=== PATIENT | male | born 1980 | race Caucasian/White ===

== ENCOUNTER 2017-06-27 19:25 | Emergency (ER) | payer OTHER ==
[~2017-06-27] VITALS: Ht 177.8 cm; Wt 82.2 kg
[~2017-06-27 19:25] MED LIST: CLC150 PO; SULF800T23 PO
[2017-06-27 20:01] VITALS: TEMP 36.8; Ht 177.8 cm; Wt 82.2 kg
--- NOTE | 2017-06-27 20:39 | EMERGENCY ROOM VISIT NOTE ---
ED Visit Note First contact with patient: 20:08 CHIEF COMPLAINT: Flulike symptoms 3 days HISTORY OF PRESENT ILLNESS: Patient is an otherwise healthy 36-year-old white male who presents to the emergency department for evaluation of an influenza- like illness that started 3 days ago. He reports a nasal congestion, sore throat, sweats and chills, nonproductive cough, and body aches. He has not recorded his temperature with a thermometer, just notes feeling hot and chilled. He initially had a cough that was productive of clear phlegm, now has resolved. He denies any nausea vomiting chest pain or shortness of breath. He is not aware of any sick contacts. He has taken NyQuil and ibuprofen for his symptoms. REVIEW OF SYSTEMS: Review of systems as per HPI. All other systems reviewed were negative. 10 systems reviewed. PMH: Electronic medical records are reviewed and summarized as above/below. See Problem List. SOCIAL HISTORY: Patient lives at home. Former smoker. Unemployed. PHYSICAL EXAM: Vital Signs: Reviewed Nurse's notes. MENTAL STATUS: Patient is a well-appearing, nontoxic 36-year-old white male who is awake and alert and in no acute distress. Vital signs are stable. HEAD: Atraumatic, without temporal or scalp tenderness. EYES: PERRL, EOMI, no discharge or injection. EARS: Tympanic membranes intact, not inflamed, have normal contour. External canals clear. NOSE: Nares patent, turbinates moist without rhinorrhea. MOUTH: Mucous membranes moist, no lesions, tongue and gums appear normal. THROAT: No pharyngeal injection, exudates, or tonsillar hypertrophy. Airway is patent. NECK: Supple, nontender, no lymphadenopathy. HEART: Regular rate and rhythm without murmurs, ectopy, gallops, or rubs. LUNGS: Clear to auscultation and breath sounds equal, no wheezes, rales, or rhonchi. SKIN: Normal. NEUROLOGICAL: Sensory and motor functions grossly intact. Normal gait. EMERGENCY DEPARTMENT COURSE: The patient was seen and evaluated as above. Old records were reviewed. He has been sick with some minor upper respiratory symptoms for the last 2-3 days. He is afebrile and nontoxic on exam. Affect is illness is viral in nature. Possibility of influenza was also entertained. Patient was encouraged to continue conservative care. Use [id number] medications and treat himself symptomatically. It was not felt that any antibiotics were indicated at this time and this was discussed with the patient and he expressed understanding. Certainly if his symptoms worsen he can return to the emergency department at which point we would be happy to reevaluate him. Differential diagnoses include strep versus viral pharyngitis, otitis media, URI including influenza, mononucleosis, among others. Medication reconciliation: I attest that I have personally reviewed the patient' s current medication list. Blood pressure screening : Patient was found to have normal blood pressure on screening and does not require follow-up. Current/Historical Medications Scheduled Quetiapine Fumarate (Seroquel), 25 MG PO DAILY Allergies Coded Allergies: Penicillins (Unverified Allergy, Mild, 07/09/09) Vital Signs Date Time Temp Pulse Resp B/P (MAP) Pulse Ox O2 Delivery O2 Flow Rate FiO2 06/27/17 21:05 76 22 131/79 96 06/27/17 20:01 36.8 80 20 134/83 98 Room Air Departure Information Impression Primary Impression: Upper respiratory infection Referrals Gerri Durand C.R.NJavierPJavier (PCP) Patient Instructions My [facility] Additional Instructions Acetaminophen(Tylenol) may be used for fever or pain. Use 1000mg every six hours as needed. Avoid using more than 3000mg in a 24 hour period. (AND/OR) Ibuprofen(Motrin, Advil) may be used for fever or pain. Use 600mg every six hours as needed. Take with food. Avoid using more than 2400mg in a 24 hour period. Do not use 2400mg per day for more than three consecutive days without physician direction. Prolonged inappropriate use can lead to stomach upset or ulcers. Pseudoephedrine(Sudaphed): 30-60mg every 6 hours as needed for nasal congestion. Do not take this with other stimulant products or supplements. Robitussin or Delsym if needed for cough. Guaifenesin (Mucinex) : Take 1200 mg every 12 hours as needed for nasal/chest congestion, to help thin secretions. Rest and drink plenty of fluids. Controlling your fever with Tylenol and Ibuprofen as above will make you feel better. Wash your hands after nose blowing, sneezing, or coughing. Most germs are spread through contact, therefore improper hygiene may result in your close contacts and loved ones becoming ill just like you. Continue current medications. Return to the ER for severe headache, neck stiffness, chest pain, difficulty breathing, fevers, vomiting, worsening of your condition, or as needed. Follow up with your primary physician this week for a recheck of your current condition.
[2017-06-27] MEDS ORDERED: QUET1TAB30 PO (20:43)
[2017-06-27 21:05] VITALS: BP 131/79; PULSE 76; O2SAT 96
== END 2017-06-27 21:03 | disposition home or self-care (01) ==
LOC: C.EDB 19:27 → C.EDD 21:03
DX: J06.9 Acute upper respiratory infection, unspecified (principal); Z87.891 Personal history of nicotine dependence

== ENCOUNTER 2017-06-30 22:46 | Inpatient (IN) | payer OTHER ==
[~2017-06-30] VITALS: Ht 177.8 cm; Wt 93.7 kg
[~2017-06-30 22:46] MED LIST changes: -CLC150 PO; +QUET1TAB30 PO; -SULF800T23 PO
[2017-06-30] MEDS ORDERED: SODIUM CHLORIDE 0.9% 1000ML 1,000 ML IV STA (23:36)
[2017-06-30] MEDS ORDERED: PROCHLORPERAZINE 5 MG/ML 2 ML VIAL IV STA (23:36)
[2017-06-30] MEDS ORDERED: DiphenhydrAMINE HCL 50 MG/ML VIAL IV STA (23:36)
[2017-06-30] MEDS ORDERED: KETOROLAC TROMETHAMINE 30 MG/ML VIAL IV STA (23:36)
--- NOTE | 2017-06-30 23:40 | EMERGENCY ROOM VISIT NOTE ---
History Report prepared by Pat: Sonu Meyer Under the Supervision of: Dr. Jackson Eugene M.D. First contact with patient: 23:24 Chief Complaint: HEADACHE Stated Complaint: MIGRAINE, SICK History of Present Illness The patient is a 36 year old male who presents to the Emergency Room with complaints of a constant headache that began 1 day ago. Patient states the headache is located bilaterally on the top of his head. He states the pain is a 5/10 in severity. He states the headache feels like a "migraine". He states he has no history of migraines and has never been diagnosed with a migraine in the past. Patient has associated symptoms of vomiting and an upset stomach. He states the vomiting began yesterday and has gotten better today. He denies fevers or diarrhea. He states he has a penicillin allergy. Patient denies having diabetes. I reviewed the patient's previous visits. Patient was at the ER on June 27 for flu-like symptoms. Source of History: patient Onset: 1 day ago Position: head Symptom Intensity: 5/10 Timing: constant Associated Symptoms: + vomiting, No fevers, No diarrhea Note: Patient has an upset stomach. Review of Systems See HPI for pertinent positives & negatives. A total of 10 systems reviewed and were otherwise negative. Past Medical & Surgical Medical Problems: (1) Endocarditis Family History No pertinent family history. Social History Smoking Status: Never Smoker Housing Status: lives with family Current/Historical Medications Scheduled Quetiapine Fumarate (Seroquel), 25 MG PO DAILY Allergies Coded Allergies: Penicillins (Unverified Allergy, Mild, 06/30/17) Physical Exam Vital Signs Date Time Temp Pulse Resp B/P (MAP) Pulse Ox O2 Delivery O2 Flow Rate FiO2 07/01/17 01:26 109 18 98/56 95 Room Air 06/30/17 22:57 36.8 125 18 126/63 96 Room Air Physical Exam GENERAL: Patient is in no acute distress. HEENT: No acute trauma, normocephalic atraumatic, mucous membranes moist, no nasal congestion, no scleral icterus. NECK: No stridor, no adenopathy, no meningismus, trachea is midline, flexes chin to chest with no pain or difficulty. LUNGS: Clear to auscultation bilaterally, no wheeze, no rhonchi, breath sounds equal. HEART: Tachycardic with regular rhythm, no murmurs. ABDOMEN: Soft, nontender, bowel sounds positive, no hernias, no peritonitis. EXTREMITIES: No cyanosis or edema, full range of motion of all the joints without pain or difficulty, no signs for acute trauma. NEUROLOGIC: Oriented x 3, no acute motor or sensory deficits, no focal weakness. SKIN: No rash, no jaundice, no diaphoresis. Medical Decision & Procedures ER Provider Diagnostic Interpretation: Radiology results as stated below per my review and radiologist interpretation: CT HEAD: No acute intracranial process. Radiologist: Chayo Gauthier M.D. Laboratory Results 06/30/17 23:45 Red Blood Count 4.69, Mean Corpuscular Volume 89.1, Mean Corpuscular Hemoglobin 30.7, Mean Corpuscular Hemoglobin Concent 34.4, Mean Platelet Volume 8.9, Neutrophils (%) (Auto) 94.0, Lymphocytes (%) (Auto) 1.6, Monocytes (%) (Auto) 2.9, Eosinophils (%) (Auto) 0.0, Basophils (%) (Auto) 0.1, Neutrophils # (Auto) 26.63, Lymphocytes # (Auto) 0.46, Monocytes # (Auto) 0.81, Eosinophils # (Auto) 0.00, Basophils # (Auto) 0.02 06/30/17 23:45 Test 06/30/17 23:45 07/01/17 00:46 White Blood Count 28.00 K/uL (4.8-10.8) Red Blood Count 4.69 M/uL (4.7-6.1) Hemoglobin 14.4 g/dL (14.0-18.0) Hematocrit 41.8 % (42-52) Mean Corpuscular Volume 89.1 fL (80-100) Mean Corpuscular Hemoglobin 30.7 pg (25-34) Mean Corpuscular Hemoglobin Concent 34.4 g/dl (32-36) Platelet Count 221 K/uL (130-400) Mean Platelet Volume 8.9 fL (7.4-10.4) Neutrophils (%) (Auto) 94.0 % Lymphocytes (%) (Auto) 1.6 % Monocytes (%) (Auto) 2.9 % Eosinophils (%) (Auto) 0.0 % Basophils (%) (Auto) 0.1 % Neutrophils # (Auto) 26.63 K/uL (1.4-6.5) Lymphocytes # (Auto) 0.46 K/uL (1.2-3.4) Monocytes # (Auto) 0.81 K/uL (0.11-0.59) Eosinophils # (Auto) 0.00 K/uL (0-0.5) Basophils # (Auto) 0.02 K/uL (0-0.2) RDW Standard Deviation 41.8 fL (36.4-46.3) RDW Coefficient of Variation 12.9 % (11.5-14.5) Immature Granulocyte % (Auto) 1.4 % Immature Granulocyte # (Auto) 0.41 K/uL (0.00-0.02) Nucleated RBC Absolute Count (auto) 0.00 K/uL (0-0) Nucleated Red Blood Cells % 0.0 % Anion Gap 10.0 mmol/L (3-11) Est Creatinine Clear Calc Drug Dose 77.5 ml/min Estimated GFR () 77.0 Estimated GFR (Non- 66.5 BUN/Creatinine Ratio 12.0 (10-20) Calcium Level 9.3 mg/dl (8.5-10.1) Total Bilirubin 0.5 mg/dl (0.2-1) Aspartate Amino Transf (AST/SGOT) 22 U/L (15-37) Alanine Aminotransferase (ALT/SGPT) 25 U/L (12-78) Alkaline Phosphatase 119 U/L (45-117) Total Protein 7.9 gm/dl (6.4-8.2) Albumin 3.7 gm/dl (3.4-5.0) Globulin 4.2 gm/dl (2.5-4.0) Albumin/Globulin Ratio 0.9 (0.9-2) Lactic Acid Level 4.8 mmol/L (0.4-2.0) Laboratory results reviewed by me. Medications Administered Medications (Trade) Dose Ordered Sig/Kenan Route Start Time Stop Time Status Last Admin Dose Admin Sodium Chloride 1,000 ml @ 999 mls/hr Q1H1M STAT IV 06/30/17 23:36 07/01/17 00:36 DC 06/30/17 23:54 999 MLS/HR Prochlorperazine Edisylate (Compazine Inj) 10 mg NOW STAT IV 1/27/18 23:36 06/30/17 23:38 DC 06/30/17 23:53 10 MG Diphenhydramine HCl (Benadryl Inj) 25 mg NOW STAT IV 06/30/17 23:36 06/30/17 23:38 DC 06/30/17 23:54 25 MG Ketorolac Tromethamine (Toradol Inj) 30 mg NOW STAT IV 06/30/17 23:36 06/30/17 23:38 DC 06/30/17 23:54 30 MG Ceftriaxone Sodium 2000 mg/ Dextrose 70 ml @ 100 mls/hr ONE STAT IV 07/01/17 00:53 07/01/17 01:34 DC 07/01/17 01:18 100 MLS/HR Dexamethasone Sodium Phosphate (Dexamethasone Inj Pf) 10 mg STK-MED ONCE .ROUTE 07/01/17 01:13 07/01/17 01:14 DC 07/01/17 01:19 10 MG Sodium Chloride 1,000 ml @ 999 mls/hr Q1H1M STAT IV 07/01/17 01:22 07/01/17 02:22 DC 07/01/17 01:25 999 MLS/HR Sodium Chloride 500 ml @ 999 mls/hr Q31M STAT IV 07/01/17 01:22 07/01/17 01:52 DC 07/01/17 01:25 999 MLS/HR ED Course 2330: The patient was evaluated in room A7. A complete history and physical exam was performed. 2336: Toradol Inj 30mg IV, Benadryl Inj 25mg IV, Compazine Inj 10mg IV, Sodium Chloride 1000 ml @ 999 mls/hr IV 2355: Patient was moved to room A2. 0053: Dexamethasone Sodium Phosphate 10mg/Syringe 2.5ml @ 1mls/min IV, Ceftriazone Sodium 2000mg/Dextrose 70ml @ 100 mls/hr IV 0100: I reassessed the patient who states that he is feeling better. 0135: Patient refused a lumbar puncture. 0141: Upon reexamination the patient will be further evaluated. I discussed results and treatment plan with the patient. He verbalizes agreement and understanding. I spoke with Dr. Almaraz of [facility]. We discussed the patient's results and findings. The patient will be evaluated by Dr. Almaraz for further management. Medical Decision Differential Diagnosis: Dehydration, electrolyte imbalance, viral illness, renal failure, migraine, bacteremia and meningitis. There is a marked leukocytosis at 28,000, this is certainly consistent with infection. No worrisome anemia. No significant electrolyte abnormality, kidney failure or hepatitis. Blood cultures are pending. Lactic acid level is elevated at over 4, this is consistent with sepsis and/or dehydration. Brain CT shows no acute bleed or mass effect. On exam, the patient had no focal neurologic deficits. He did not have evidence for meningismus. He was not febrile. The patient received IV saline. He was ordered for 2.5 L IV. He received IV ceftriaxone as antibiotic coverage-this antibiotic was chosen for the possibility of meningitis. He was given IV Decadron. Patient received IV Compazine and IV Benadryl. He was given IV Toradol. The patient feels markedly improved. His tachycardia has improved. The patient presented with vomiting and what he described as a migraine. As his workup progressed, I became more concerned for the possibility of sepsis. I did consider meningitis however, the patient's headache is gone with fairly minimal pain medication-this makes meningitis less likely. I discussed a lumbar puncture with the patient, he has refused this test. He understands the risks and benefits of not having the procedure versus having the procedure. I am concerned the patient may be septic. He carries a history of endocarditis , this may be the case again. Antibiotic coverage, hydration, further workup and hospitalization is required. I spoke to the case management team. The on- call hospitalist was consulted. Medication Reconcilliation Current Medication List: was personally reviewed by me Blood Pressure Screening Patient's blood pressure: Normal blood pressure Blood pressure disposition: Did not require urgent referral Impression Primary Impression: SIRS (systemic inflammatory response syndrome) Additional Impressions: Leukocytosis Tachycardia Nausea Vomiting Dehydration Headache Critical Care I have personally spent greater than 40 minutes of critical care time in the direct management of this patient. This includes bedside care, interpretation of diagnostic studies, and testing, discussion with consultants, patient, and family members, and other required patient management activities. This 40 minutes is in excess of all separately billable procedures. Scribe Attestation The scribe's documentation has been prepared under my direction and personally reviewed by me in its entirety. I confirm that the note above accurately reflects all work, treatment, procedures, and medical decision making performed by me. Departure Information Dispostion Being Evaluated By Hospitalist Referrals Gerri Durand C.R.N.PJavier (PCP) Forms HOME CARE DOCUMENTATION FORM, IMPORTANT VISIT INFORMATION Patient Instructions My [facility] Problem Qualifiers
[2017-06-30 23:59] LABS: HEMATOCRIT 41.8 % (42-52); HEMOGLOBIN 14.4 g/dL (14.0-18.0); MEAN CELL VOLUME 89.1 fL (80-100); MEAN CORPUSCULAR HEMOGLOBIN 30.7 pg (25-34); MEAN CORPUSCULAR HGB CONC 34.4 g/dl (32-36); MEAN PLATELET VOLUME 8.9 fL (7.4-10.4); PLATELET COUNT 221 K/uL (130-400); RED CELL DISTRIBUTION WIDTH CV 12.9 % (11.5-14.5); RED CELL DISTRIBUTION WIDTH SD 41.8 fL (36.4-46.3)
[2017-07-01] VITALS (7 sets, daily range): BP systolic 111–139; BP diastolic 68–88; PULSE 76–96; TEMP 36.6–36.8; O2SAT 96–99; Ht 177.8 cm; Wt 93.7 kg
[2017-07-01 00:16] LABS: ALBUMIN 3.7 gm/dl (3.4-5.0); CALCIUM 9.3 mg/dl (8.5-10.1); CREATININE 1.36 mg/dl (0.60-1.40); POTASSIUM 4.2 mmol/L (3.5-5.1)
[2017-07-01 00:19] LABS: TOTAL PROTEIN 7.9 gm/dl (6.4-8.2)
[2017-07-01] MEDS ORDERED: CEFTRIAXONE SOD INJ 2,000 MG in DEXTROSE 5% 50ML 50 ML IV STA (00:53)
[2017-07-01] MEDS ORDERED: DEXAMETHASONE INJ 10 MG in SYRINGE 0 ML IV STA (00:53)
[2017-07-01] MEDS ORDERED: DEXAMETHASONE **PF** INJ 10 MG/ML VIAL ONE (01:13)
[2017-07-01] MEDS ORDERED: SODIUM CHLORIDE 0.9% 500ML 500 ML IV STA (01:22)
[2017-07-01] MEDS ORDERED: SODIUM CHLORIDE 0.9% 1000ML 1,000 ML IV STA (01:22)
[2017-07-01 01:35] LABS: BASO % 0.1 %; BASO ABS # 0.02 K/uL (0-0.2); IG# 0.41 K/uL (0.00-0.02); LYMPH % 1.6 %; LYMPH ABS # 0.46 K/uL (1.2-3.4); MONO % 2.9 %; MONO ABS # 0.81 K/uL (0.11-0.59); NEUT ABS # 26.63 K/uL (1.4-6.5)
[2017-07-01] MEDS ORDERED: VANCOMYCIN INJ 1,000 MG in SODIUM CHLORIDE 0.9% 250ML 250 ML IV STA (02:27)
[2017-07-01] MEDS ORDERED: VANCOMYCIN CONSULT ACTIVE PRN (02:30)
[2017-07-01] MEDS ORDERED: ACETAMINOPHEN 325 MG TAB PO PRN (02:30)
[2017-07-01] MEDS ORDERED: ONDANSETRON INJ 2 MG/ML 2 ML VIAL IV PRN (02:30)
[2017-07-01] MEDS ORDERED: VANCOMYCIN INJ 1,750 MG in SODIUM CHLORIDE 0.9% 500ML 500 ML IV STA (02:45)
[2017-07-01] MEDS: SODIUM CHLORIDE 0.9% 1000ML 1,000 ML IV SCH ×3 (03:59→19:36)
[2017-07-01] MEDS ORDERED: INFLUENZA VIRUS QUAD VACCINE 0.5 ML SYR IM. ONE (05:00)
[2017-07-01] MEDS ORDERED: INFLUENZA ADMINISTRATION CHARGE ONE (05:00)
--- NOTE | 2017-07-01 05:50 | HISTORY & PHYSICAL EXAMINATION ---
DATE OF ADMISSION: 07/01/2017 PRIMARY CARE PHYSICIAN: From [facility] CHIEF COMPLAINT: Headache with nausea and vomiting. HISTORY OF PRESENT COMPLAINT: He is a 36-year-old male with a significant past medical history of anxiety/depression and remote history of endocarditis. Apparently, he has been complaining of nausea, vomiting, and diarrhea, and with that, he was in the Emergency Room on June 27. He also complained to have some upper respiratory type of infection at the same time. He was sent home and the condition did not get any better and he is here today with a headache without any other symptoms of photophobia, neck stiffness, or any numbness or tingling in the extremities. He also complained to have some pain involving bilateral lower back associated with some nausea, but no vomiting. He denies to have any fever, chills or rigors with it. He does not have any problem with the urine and/or bowel habit. In the Emergency Room, he was not looking that toxic, but his blood count came back abnormal with a white count of 28,000 and also lactate level of more than 4. From that point, he was cultured and started with intravenous ceftriaxone and medicine service consulted for probable admission. Apparent CT scan of the head and chest x-ray remained unremarkable. PAST MEDICAL HISTORY: Significant for remote history of endocarditis and anxiety/depression. PAST SURGICAL HISTORY: Nothing significant. FAMILY HISTORY: No history of diabetes or hypertension in the family. SOCIAL HISTORY: He is single. He lives with his family at times; at times, with his friends; and at times, with his girlfriend. He does not smoke, does not drink and he does not use any drugs. ALLERGIES: PENICILLIN. MEDICATIONS: He has been on Seroquel 25 mg daily. REVIEW OF SYSTEMS: CENTRAL NERVOUS SYSTEM: He does have headache involving the bifrontal area without any associated symptoms of blurred vision, nausea, vomiting, neck stiffness, any numbness or tingling in the extremities, or any weakness involving any side of the body. CARDIOVASCULAR: No palpitation, no chest pain. RESPIRATORY: Did have cough, but no phlegm today. No shortness of breath. No fevers, chills or rigors. GASTROINTESTINAL: No abdominal pain, but did have some nausea. GENITOURINARY: No problem with urine and/or bowel habit. MUSCULOSKELETAL: Denies any acute arthritis involving any joint. SKIN: He does not have any rash and/or enlargement of lymph nodes. He has extensive tattooing all over the body, but nothing recent. PHYSICAL EXAMINATION: GENERAL: On examination in the Emergency Room, he was not having any acute distress. He is very badly kempt. VITAL SIGNS: Temperature 36.8, pulse was 125, blood pressure 98/56 and that went down from 134/83, saturation 95% on room air. HEENT: Unremarkable. NECK: Supple. No JVD, no bruit. CHEST: Clear to auscultate bilaterally. HEART: S1, S2. No murmur appreciated. ABDOMEN: Soft, benign, nontender, no organomegaly, no tenderness in the renal angle. Bowel sounds present. EXTREMITIES: Negative for any edema. MUSCULOSKELETAL SYSTEM: Did not show any acute arthritis involving any joint. CENTRAL NERVOUS SYSTEM: He was alert, awake, oriented x3 and no focal sensory and/or motor deficit appreciated. No neck stiffness. No Kernig signs and/or Brudzinski signs. LABORATORY DATA: Noted today, white count was 28,000, H&H 14.4/41.8, platelet was 221, polys of 26.63%. Sodium 136, potassium 4.2, chloride 102, carbon dioxide 25, BUN 16, creatinine 1.36, random glucose 160. Lactic acid was 4.8. LFTs unremarkable except alkaline phosphatase of 119. UA examination pending. Chest x-ray, no infiltration and/or CHF. CT scan negative for any acute events. EKG was in sinus rhythm, rate of 109 per minute, normal axis and no significant ST-T wave changes. IMPRESSION AND PLAN: 1. Sepsis. He qualifies for sepsis criteria with tachycardia and increased white count with a left shift and also low blood pressure. Blood cultures were taken and he was started with intravenous ceftriaxone. We added vancomycin with a history of infective endocarditis. He will be admitted to medical floor. His lactic acid is elevated at 4.8, that will be repeated and he got adequate amount of IV fluid, which will be continued and further management will depend on further test results. 2. Headache with associated nausea and vomiting. He has had upper respiratory infection symptoms about 3 days back. He could have viral illness, which was causing the headache and his symptoms, but the white count seems to be out of proportion and he has neutrophil elevated, which goes against viral. He did have a CAT scan of the head that was negative. He does not have any signs of meningitis to think of. 3. History of endocarditis. He does not use any IV drugs. The cause of endocarditis remained unknown in the past. We will get an echocardiogram if the blood cultures come back positive to rule out any endocarditis. 4. Anxiety/depression. He has been on Seroquel. Continue with that. 5. Deep venous thrombosis prophylaxis with Lovenox. 6. Code status. He will be a full code. In my clinical assessment, the beneficiary meets criteria as per CMS for 2 midnights' stay in the hospital. HORACIO
[2017-07-01 08:10] LABS: HEMATOCRIT 36.9 % (42-52); HEMOGLOBIN 12.4 g/dL (14.0-18.0); MEAN CELL VOLUME 90.2 fL (80-100); MEAN CORPUSCULAR HEMOGLOBIN 30.3 pg (25-34); MEAN CORPUSCULAR HGB CONC 33.6 g/dl (32-36); MEAN PLATELET VOLUME 8.8 fL (7.4-10.4); PLATELET COUNT 165 K/uL (130-400); RED CELL DISTRIBUTION WIDTH CV 13.1 % (11.5-14.5); RED CELL DISTRIBUTION WIDTH SD 42.9 fL (36.4-46.3); WHITE BLOOD COUNT 22.45 K/uL (4.8-10.8)
[2017-07-01 08:20] LABS: INR 1.1 (0.9-1.1)
[2017-07-01 08:42] LABS: ALKALINE PHOSPHATASE 76 U/L (45-117); ALT/SGPT 25 U/L (12-78); AST/SGOT 20 U/L (15-37); BLOOD UREA NITROGEN 15 mg/dl (7-18); CALCIUM 8.6 mg/dl (8.5-10.1); CARBON DIOXIDE 29 mmol/L (21-32); CREATININE 0.94 mg/dl (0.60-1.40); GLUCOSE 154 mg/dl (70-99); PHOSPHORUS 1.6 mg/dl (2.5-4.9); POTASSIUM 4.8 mmol/L (3.5-5.1); SODIUM 139 mmol/L (136-145); TOTAL PROTEIN 6.5 gm/dl (6.4-8.2)
[2017-07-01] MEDS ORDERED: QUETIAPINE FUMARATE 25 MG TAB PO SCH (09:00)
--- NOTE | 2017-07-01 09:43 | DIAGNOSTIC IMAGING REPORT ---
CT OF THE HEAD WITHOUT CONTRAST CLINICAL HISTORY: Headache. COMPARISON STUDY: No previous studies for comparison. CT DOSE: 614.27 mGy.cm TECHNIQUE: Helical axial images of the head were obtained without IV contrast. Automated exposure control was utilized for the study. A dose lowering technique was utilized adhering to the principles of ALARA. FINDINGS: No acute intracranial hemorrhage, midline shift or mass effect is present. Ventricular system is unremarkable. Basilar cisterns are patent. There are no extra-axial collections. Byrd-white differentiation is maintained. There are no findings to suggest acute dural sinus thrombosis or acute territorial infarct. There are no significant calvarial abnormalities. Visualized portions of the sinuses and mastoid air cells are clear. IMPRESSION: No acute intracranial findings. Electronically signed by: Yamil Malcolm M.D. 07/01/2017 9:42 AM Dictated Date/Time: 07/01/2017 9:40 AM
--- NOTE | 2017-07-01 10:12 | DIAGNOSTIC IMAGING REPORT ---
CHEST ONE VIEW PORTABLE CLINICAL HISTORY: Cough. Congestion. Evaluate for pneumonia. COMPARISON STUDY: No previous studies for comparison. FINDINGS: Lung volumes are normal. Left heart border is slightly obscured. Right lung is clear. Cardiac size is normal. Mediastinal contours are normal. There is no pneumothorax or pleural effusion. IMPRESSION: Obscured left heart border. This is probably within normal limits although a lingular pneumonia could appear similar. Follow-up PA and lateral chest radiographs are recommended. Electronically signed by: Yamil Malcolm M.D. 07/01/2017 10:10 AM Dictated Date/Time: 07/01/2017 10:09 AM
[2017-07-01] MEDS: ENOXAPARIN 40 MG/0.4 ML SYR SC SCH (10:30)
--- NOTE | 2017-07-01 11:32 | Pharmacy Progress Note ---
Pharmacy Abx Initial Consult Date of Service Jul 01, 2017. Pharmacy Dosing Scope Date of Consult: 07/01/17 Consultation requested by: Dr. Almaraz Pharmacy is consulted to initiate Vancomycin IV dosing therapy, order appropriate labs and adjust drug dose/frequency. Pt is also on Rocephin 2gm iv q 24 hours. Subjective The patient is a 36 year old male admitted on Jul 01, 2017 at 02:26. Objective Height (Feet): 5 Height (Inches): 10.00 Weight (Kilograms): 84.700 Vital Signs (Past 12Hrs) Vital Signs Past 12 Hours Date Time Temp Pulse Resp B/P (MAP) Pulse Ox O2 Delivery O2 Flow Rate FiO2 07/01/17 08:47 36.8 82 20 117/68 (84) 97 Room Air 07/01/17 08:00 97 Room Air 07/01/17 03:30 36.7 84 18 111/73 97 Room Air 07/01/17 03:05 102 18 108/57 95 07/01/17 02:43 18 104/64 96 Room Air 07/01/17 01:26 109 18 98/56 95 Room Air Lab Results (24Hrs) Laboratory Tests (24 Hours) Test 06/30/17 23:45 07/01/17 07:54 White Blood Count 28.00 K/uL (4.8-10.8) H 22.45 K/uL (4.8-10.8) H Red Blood Count 4.69 M/uL (4.7-6.1) L Hemoglobin 14.4 g/dL (14.0-18.0) Hematocrit 41.8 % (42-52) L Mean Corpuscular Volume 89.1 fL (80-100) Mean Corpuscular Hemoglobin 30.7 pg (25-34) Mean Corpuscular Hemoglobin Concent 34.4 g/dl (32-36) Platelet Count 221 K/uL (130-400) Mean Platelet Volume 8.9 fL (7.4-10.4) Neutrophils (%) (Auto) 94.0 % Lymphocytes (%) (Auto) 1.6 % Monocytes (%) (Auto) 2.9 % Eosinophils (%) (Auto) 0.0 % Basophils (%) (Auto) 0.1 % Neutrophils # (Auto) 26.63 K/uL (1.4-6.5) H Lymphocytes # (Auto) 0.46 K/uL (1.2-3.4) L Monocytes # (Auto) 0.81 K/uL (0.11-0.59) H Eosinophils # (Auto) 0.00 K/uL (0-0.5) Basophils # (Auto) 0.02 K/uL (0-0.2) Lactic Acid Level 2.1 mmol/L (0.4-2.0) *H Micro Results Date/Time Source Procedure Growth Status 07/01/17 00:46 Blood Blood Culture Pending Received 07/01/17 00:42 Blood Blood Culture Pending Received Risk Factors for Resistance * Recent antibiotics with 90 day Assessment & Plan Assessment 36 year old male with a history of previous endocarditis and recent upper respiratory infection admitted for sepsis. Renal function at baseline. WBC=22 Blood cultures pending Dates and culture data from endocarditis unknown at this time. Pt was started on Clindamycin and Bactrim on 06/27 for URI Plan Vancomycin for treatment of sepsis. Vancomycin IV * Loading dose: 1750 mg (21 mg/kg) * Maintenance dose: 1250 mg IV (15 mg/kg) every 8 hours * Goal trough level for sepsis: 15 to 20 mcg/mL * Therapy is empiric for now, however trough level ordered for 07/02 @1130 to ensure adequate dosing Pharmacy will continue to follow and will adjust dose/frequency as necessary. Thank you.
[2017-07-01] MEDS: VANCOMYCIN INJ 1,250 MG in SODIUM CHLORIDE 0.9% 250ML 250 ML IV SCH ×2 (12:00→19:37)
--- NOTE | 2017-07-01 13:20 | ECHOCARDIOGRAM REPORT ---
*NOTICE TO RECEIVING [employer] This information is strictly Confidential and protected under [place] law. [place] law prohibits you from making any further disclosure of this information unless further disclosure is expressly permitted by the written consent of the person to whom it pertains or is authorized by law. A general authorization for the release of medical or other information is not sufficient for this purpose. Hospital accepts no responsibility if the information is made available to any other person, INCLUDING THE PATIENT. Interpretation Summary * Name: ALEIDA MUNSON Study Date: 07/01/2017 09:25 AM BP: 111/73 mmHg * Patient Location: C.2T\S\S235\S\1 HR: 84 * : 1980 (M/d/yyyy) Gender: Male Height: 70 in * Age: 36 yrs Ethnicity: [place] Weight: 186 lb * Ordering Physician: Talon Guzman * Referring Physician: Self, Referred * Performed By: Shikha Tse RDCS * * Reason For Study: Endocarditis * BSA: 2.0 m2 * There is no evidence of a mass or vegetation. This does not rule out endocarditis. * -- Conclusions -- * There is no evidence of a mass or vegetation. This does not rule out endocarditis. * The left ventricle is normal in size. * Left ventricular systolic function is normal. * Ejection Fraction = 55-60%. Procedure Details * A complete two-dimensional transthoracic echocardiogram was performed (2D, M-mode, Doppler and color flow Doppler). Left Ventricle * The left ventricle is normal in size. * There is normal left ventricular wall thickness. * Ejection Fraction = 55-60%. * Left ventricular systolic function is normal. Right Ventricle * The right ventricle is normal size. * The right ventricular systolic function is normal. Atria * The left atrial size is normal. * Right atrial size is normal. * The interatrial septum is intact with no evidence for an atrial septal defect. Mitral Valve * The mitral valve anatomy is normal. * There is no vegetation seen on the mitral valve. * There is no mitral regurgitation noted. Tricuspid Valve * The tricuspid valve anatomy is normal. * There is no tricuspid valve vegetation. * There is mild tricuspid regurgitation. Aortic Valve * The aortic valve is tricuspid. The leaflet thickness if normal. There is no aortic stenosis, and no significant insufficiency. * The aortic valve opens well. * There is no aortic valvular vegetation. * There is no significant aortic regurgitation. Pulmonic Valve * The pulmonic valve is not well seen, but is grossly normal. * There is no significant pulmonary regurgitation. MMode 2D Measurements and Calculations IVSd 1.0 cm IVSs 10 cm LVIDd 4.7 cm LVIDs 3.3 cm LVPWd 1.0 cm LVPWs 1.4 cm IVS/LVPW 0.96 FS 29.2 % EDV(Teich) 102.3 ml ESV(Teich) 45.0 ml EF(Teich) 56.0 % EDV(cubed) 103.7 ml ESV(cubed) 36.8 ml EF(cubed) 64.5 % % IVS thick -1.16 % % LVPW thick 34.6 % LV mass(C)d 171.0 grams LV mass(C)dI 84.5 grams/m\S\2 LV mass(C)s 127.0 grams LV mass(C)sI 62.7 grams/m\S\2 SV(Teich) 57.3 ml SI(Teich) 28.3 ml/m\S\2 SV(cubed) 66.9 ml SI(cubed) 33.1 ml/m\S\2 Ao root diam 2.9 cm Ao root area 6.7 cm\S\2 ACS 2.0 cm LA dimension 2.8 cm LA/Ao 0.97 LVAd ap4 31.6 cm\S\2 LVLd ap4 8.2 cm EDV(MOD-sp4) 102.3 ml EDV(sp4-el) 103.2 ml LVAs ap4 17.9 cm\S\2 LVLs ap4 7.0 cm ESV(MOD-sp4) 39.7 ml ESV(sp4-el) 38.8 ml EF(MOD-sp4) 61.2 % EF(sp4-el) 62.4 % LVAd ap2 32.0 cm\S\2 LVLd ap2 8.8 cm EDV(MOD-sp2) 99.7 ml EDV(sp2-el) 98.4 ml LVAs ap2 18.4 cm\S\2 LVLs ap2 7.3 cm ESV(MOD-sp2) 40.3 ml ESV(sp2-el) 39.3 ml EF(MOD-sp2) 59.5 % EF(sp2-el) 60.1 % LVLd %diff 7.0 % EDV(MOD-bp) 104.9 ml LVLs %diff 4.1 % ESV(MOD-bp) 39.7 ml EF(MOD-bp) 62.2 % SV(MOD-sp4) 62.6 ml SI(MOD-sp4) 30.9 ml/m\S\2 SV(MOD-sp2) 59.3 ml SI(MOD-sp2) 29.3 ml/m\S\2 SV(MOD-bp) 65.3 ml SI(MOD-bp) 32.2 ml/m\S\2 SV(sp4-el) 64.3 ml SI(sp4-el) 31.8 ml/m\S\2 SV(sp2-el) 59.1 ml SI(sp2-el) 29.2 ml/m\S\2 Doppler Measurements and Calculations MV E max forest 85.8 cm/sec MV A max forest 65.6 cm/sec MV E/A 1.3 MV dec time 0.28 sec Ao V2 max 117.5 cm/sec Ao max PG 5.5 mmHg Ao max PG (full) 0.64 mmHg LV V1 max PG 4.9 mmHg LV V1 max 110.4 cm/sec PA V2 max 71.8 cm/sec PA max PG 2.1 mmHg PI max forest 106.6 cm/sec PI max PG 4.5 mmHg PI dec slope 75.6 cm/sec\S\2 PI P1/2t 412.7 msec TR max forest 207.5 cm/sec
[2017-07-01] MEDS ORDERED: VANCOMYCIN INJ 1,250 MG in SODIUM CHLORIDE 0.9% 500ML 500 ML IV SCH (14:00)
[2017-07-01] MEDS ORDERED: VANCOMYCIN INJ 1,250 MG in SODIUM CHLORIDE 0.9% 250ML 250 ML IV SCH (14:00)
--- NOTE | 2017-07-01 15:45 | Progress Note ---
Progress Note Date of Service Jul 01, 2017. Progress Note Subjective: No acute distress. Patient breathing on room air. Reports that he is feeling better since hospital admission yesterday night. reports headaches improving. denies vomiting in the hospital GENERAL: no acute distress NECK: Supple. No JVD, trachea midline CHEST: Clear to auscultate bilaterally. HEART: S1, S2. No murmur appreciated. ABDOMEN: Soft, benign, nontender, no organomegaly, no tenderness in the CVA tenderness renal angle. Bowel sounds present. EXTREMITIES: Negative for any edema. NERVOUS SYSTEM: He was alert, awake, oriented x3 and no focal sensory and/or motor deficit appreciated. No neck stiffness. No Kernig signs and/or Brudzinski signs. CT head: no stroke CXR: Lung volumes are normal. Left heart border is slightly obscured. Right lung is clear. Cardiac size is normal. Mediastinal contours are normal. There is no pneumothorax or pleural effusion Echocardiogram * There is no evidence of a mass or vegetation. * The left ventricle is normal in size. * Left ventricular systolic function is normal. * Ejection Fraction = 55-60%. -This is a 36 year old M who is treated for sepsis with admission WBC 28,000, tachycardia, low blood pressure, elevated lactic acid of 4.8. Patient received fluids, Vancomycin and Ceftriaxone with subsequent downtrend of WBC to 22,000 and lactic acid 2.1. There is no clear source of infection and blood cultures are pending results. Echocardiogram did not find evidence or mass or vegetation. There is no heart murmur on exam suggestive of endocarditis however patient reports being treated for this problem years ago. Headache improving and vomiting has stopped. Patient on exam during the day of 07/01/17 is not toxic appearing. No meningeal signs on exam. He is awake and not in distress and wants to know when he can be discharged. Explained to the patient that he is being treated for sepsis, possible bacterial infection, dehydration. Patient understands that IV antibiotics to be continued as blood culture results pending. -Continue home dose Seroquel for history of anxiety/depression -Deep venous thrombosis prophylaxis with Lovenox.
[2017-07-02] VITALS (7 sets, daily range): BP systolic 108–129; BP diastolic 66–78; PULSE 60–101; TEMP 36.6–36.9; O2SAT 96–99
[2017-07-02] MEDS: SODIUM CHLORIDE 0.9% 1000ML 1,000 ML IV SCH ×2 (00:30→11:21)
[2017-07-02] MEDS ORDERED: CEFTRIAXONE SOD INJ 2,000 MG in DEXTROSE 5% 50ML 50 ML IV SCH (01:00)
[2017-07-02] MEDS: VANCOMYCIN INJ 1,250 MG in SODIUM CHLORIDE 0.9% 250ML 250 ML IV SCH ×3 (05:04→21:46)
[2017-07-02 06:46] LABS: BASO % 0.1 %; BASO ABS # 0.01 K/uL (0-0.2); EOS % 0.3 %; EOS ABS # 0.06 K/uL (0-0.5); HEMATOCRIT 34.8 % (42-52); HEMOGLOBIN 12.1 g/dL (14.0-18.0); LYMPH % 11.9 %; LYMPH ABS # 2.33 K/uL (1.2-3.4); MEAN CELL VOLUME 89.7 fL (80-100); MEAN CORPUSCULAR HEMOGLOBIN 31.2 pg (25-34); MEAN CORPUSCULAR HGB CONC 34.8 g/dl (32-36); MEAN PLATELET VOLUME 9.5 fL (7.4-10.4); MONO % 10.3 %; MONO ABS # 2.01 K/uL (0.11-0.59); NEUT % 76.9 %; NEUT ABS # 15.03 K/uL (1.4-6.5); PLATELET COUNT 185 K/uL (130-400); RED CELL DISTRIBUTION WIDTH CV 12.9 % (11.5-14.5); WHITE BLOOD COUNT 19.54 K/uL (4.8-10.8)
[2017-07-02 07:22] LABS: CREATININE 0.79 mg/dl (0.60-1.40)
--- NOTE | 2017-07-02 09:31 | DIAGNOSTIC IMAGING REPORT ---
TWO VIEW CHEST CLINICAL HISTORY: Sepsis. FINDINGS: PA and lateral chest radiographs are compared to study dated 07/01/2017. The cardiomediastinal silhouette is unremarkable. There is partial obscuration of the left heart border, likely related to epicardial fat. The lungs and pleural spaces are clear. There is no pneumothorax. The bony thorax appears intact. IMPRESSION: No active disease in the chest. Electronically signed by: Jackson Barragan M.D. 07/02/2017 9:30 AM Dictated Date/Time: 07/02/2017 9:27 AM
[2017-07-02] MEDS ORDERED: NURSING VERBAL MED ORDER ONE (09:45)
[2017-07-02] MEDS: ENOXAPARIN 40 MG/0.4 ML SYR SC SCH (10:31)
[2017-07-02] MEDS ORDERED: SODIUM PHOSPHATE 3 MMOL/1 ML INFUSION IV STA (10:46)
[2017-07-02 10:48] LABS: INFLUENZA B ANTIGEN Neg for Influ B (NEG)
[2017-07-02] MEDS ORDERED: SODIUM PHOSPHATE INJ 30 MMOL in SODIUM CHLORIDE 0.9% 500ML 500 ML IV ONE (11:00)
[2017-07-02] MEDS ORDERED: VANCOMYCIN TROUGH ONE ×2 (11:30→13:30)
--- NOTE | 2017-07-02 12:52 | Pharmacy Progress Note ---
Pharmacy Abx Dose Short Note Date of Service Jul 02, 2017. Assessment & Plan Assessment 36 year old male receiving Vanco/Rocephin for empiric sepsis treatment. Day # 2/3 of antimicrobial therapy. I spoke with Dr. Guzman re: the antibiotics falling off. He is OK with this for now and will re-order antimicrobials if necessary. Plan Vancomycin * Trough level of 18.9 mcg/mL is therapeutic for sepsis * Continue dose of 1250mg (~15mg/kg) IV every 8 hours * Goal trough level for sepsis : 15 to 20 mcg/mL * Trough level ordered for: None unless Vanco set to continue beyond 07/03/17 Pharmacy will continue to follow and will adjust dose/frequency as necessary. Thank you.
--- NOTE | 2017-07-02 15:47 | Progress Note ---
Progress Note Date of Service Jul 02, 2017. Progress Note Subjective: No acute distress. Patient breathing on room air. Denies headache or vomiting or fevers GENERAL: no acute distress NECK: Supple. No JVD, trachea midline CHEST: Clear to auscultate bilaterally, no wheezing HEART: S1, S2. No murmur appreciated. ABDOMEN: Soft, benign, nontender, no organomegaly, no tenderness in the CVA tenderness renal angle. Bowel sounds present. EXTREMITIES: Negative for any edema. NERVOUS SYSTEM: alert, awake, oriented x3 and no focal sensory and/or motor deficit appreciated. CT head: no stroke Admission CXR: Lung volumes are normal. Left heart border is slightly obscured. Right lung is clear. Cardiac size is normal. Mediastinal contours are normal. There is no pneumothorax or pleural effusion Echocardiogram * There is no evidence of a mass or vegetation. * The left ventricle is normal in size. * Left ventricular systolic function is normal. * Ejection Fraction = 55-60%. Repeat CXR: PA and lateral chest radiographs are compared to study dated 2017. The cardiomediastinal silhouette is unremarkable. There is partial obscuration of the left heart border, likely related to epicardial fat. The lungs and pleural spaces are clear. There is no pneumothorax. The bony thorax appears intact. No active disease in the chest Assessment/Plan -This is a 36 year old M who is treated for sepsis with admission WBC 28,000, tachycardia, low blood pressure, elevated lactic acid of 4.8. Patient received fluids, Vancomycin and Ceftriaxone with subsequent downtrend of WBC to 22,000 and lactic acid 2.1. -Today, labs showing leukocytosis downtrending to 19,540. ESR of 6 is low. But positive CRP 7.24 and Procalcitonin 22.93 -Labs and admission vitals show initial sepsis. But unclear as to source of infection. Blood culture 07/01/17 with no growth to date, patient is well appearing and vancomycin running today, despite well appearance he agrees to repeat blood culture today on 07/02/17 and further antibiotic / IV fluids as leukocytosis is resolving but still elevated - Echocardiogram did not find evidence or mass or vegetation. There is no heart murmur on exam suggestive of endocarditis however patient reports being treated for this problem years ago. Headache improving and vomiting has stopped. -Continue home dose Seroquel for history of anxiety/depression -Deep venous thrombosis prophylaxis with Lovenox Disposition: Empiric antibiotics will discontinue tomorrow. If patient afebrile and WBC continues to downtrend then patient may be discharged to home Patient follows with primary care Dr. Saira Durand who is of the [facility] system.
[2017-07-02] MEDS ORDERED: QUETIAPINE FUMARATE 25 MG TAB PO SCH (21:00)
[2017-07-03] VITALS: O2SAT 99
[2017-07-03] MEDS: SODIUM CHLORIDE 0.9% 1000ML 1,000 ML IV SCH ×2 (01:13→03:30)
[2017-07-03 03:22] VITALS: BP 127/81; PULSE 49; TEMP 36.6; O2SAT 97
[2017-07-03] MEDS: VANCOMYCIN INJ 1,250 MG in SODIUM CHLORIDE 0.9% 250ML 250 ML IV SCH (03:31)
[2017-07-03 04:00] VITALS: O2SAT 97
[2017-07-03 06:31] LABS: BASO % 0.2 %; BASO ABS # 0.02 K/uL (0-0.2); EOS % 1.7 %; EOS ABS # 0.17 K/uL (0-0.5); HEMATOCRIT 33.3 % (42-52); HEMOGLOBIN 11.3 g/dL (14.0-18.0); IG# 0.02 K/uL (0.00-0.02); LYMPH % 30.9 %; MEAN CELL VOLUME 87.9 fL (80-100); MEAN CORPUSCULAR HEMOGLOBIN 29.8 pg (25-34); MEAN CORPUSCULAR HGB CONC 33.9 g/dl (32-36); MEAN PLATELET VOLUME 9.8 fL (7.4-10.4); MONO ABS # 0.97 K/uL (0.11-0.59); NEUT ABS # 5.54 K/uL (1.4-6.5); PLATELET COUNT 169 K/uL (130-400); RED CELL DISTRIBUTION WIDTH CV 12.9 % (11.5-14.5); RED CELL DISTRIBUTION WIDTH SD 41.6 fL (36.4-46.3); WHITE BLOOD COUNT 9.72 K/uL (4.8-10.8)
[2017-07-03 07:15] LABS: ALBUMIN 2.6 gm/dl (3.4-5.0); CALCIUM 8.2 mg/dl (8.5-10.1); CREATININE 0.88 mg/dl (0.60-1.40); POTASSIUM 3.6 mmol/L (3.5-5.1); TOTAL PROTEIN 5.6 gm/dl (6.4-8.2)
[2017-07-03 08:48] VITALS: BP 143/90; PULSE 79; TEMP 37; O2SAT 99
[2017-07-03] MEDS: ENOXAPARIN 40 MG/0.4 ML SYR SC SCH (10:00)
[2017-07-03] MEDS ORDERED: CEFU1TAB36 PO (10:34)
[2017-07-03] MEDS ORDERED: DOXY100C41 PO (10:34)
[2017-07-03] MEDS ORDERED: LCTX PO (10:34)
--- NOTE | 2017-07-03 10:36 | Discharge Instructions ---
Discharge Instructions Date of Service Jul 03, 2017. Admission Reason for Admission: Sepsis Discharge Discharge Diagnosis / Problem: SEPSIS? UNCLEAR SOURCE Discharge Goals Goal(s): Decrease discomfort, Improve function Activity Recommendations Activity Limitations: resume your previous activity . Instructions / Follow-Up Instructions / Follow-Up FOLLOWUP WITH FAMILY DOCTOR IN ONE WEEK Current Hospital Diet Patient's current hospital diet: Regular Diet Discharge Diet Recommended Diet: Regular Diet Pending Studies Studies pending at discharge: no Medical Emergencies . Who to Call and When: Medical Emergencies: If at any time you feel your situation is an emergency, please call 911 immediately. . Non-Emergent Contact Non-Emergency issues call your: Primary Care Provider . . "Provider Documentation" section prepared by Silver Diallo. . VTE Core Measure Inpt VTE Proph given/why not?: Enoxaparin (Lovenox)SQ (REFUSED)
[2017-07-03 11:02] VITALS: BP 143/90; PULSE 79; TEMP 37; O2SAT 99
[2017-07-03] MEDS ORDERED: VANCOMYCIN TROUGH ONE (11:30)
--- NOTE | 2017-07-03 18:42 | Progress Note ---
Internal Med Progress Note Date of Service: Jul 03, 2017. Provider Documentation: SUBJECTIVE: afebrile has mild cough no pain hemodynamics stable wants to be discharged OBJECTIVE: Vital Signs-as noted below Exam: General-alert and oriented. Not in distress ENT-Normal hearing Neck-no neck masses Lungs-cta b/l no wheezing or crackles Heart-S1 and S2 heard regular rate and rhythm, no murmurs Abdomen-soft bowel sounds present no tenderness no distension Extremities-no edema no erythema Neuro-alert and awake moves extremities Lab data as noted below. ASSESSMENT & PLAN: -This is a 36 year old M who is treated for sepsis with admission WBC 28,000, tachycardia, low blood pressure, elevated lactic acid of 4.8.Received fluids, Vancomycin and Ceftriaxone. LActic acid improved Cultures no growth Echo unremarkable leukocytosis resolved has some cough patient want to be discharged discharged on cefuroxime and doxycycline f/u with pcp. Continue home dose Seroquel for history of anxiety/depression Discharged home Vital Signs: Date Time Temp Pulse Resp B/P (MAP) Pulse Ox O2 Delivery O2 Flow Rate FiO2 07/03/17 11:02 37.0 79 16 99 Room Air 07/03/17 08:48 37.0 79 16 143/90 (107) 99 Room Air 07/03/17 08:00 Room Air 07/03/17 04:00 97 Room Air 07/03/17 03:22 36.6 49 17 127/81 (96) 97 Room Air 07/03/17 00:00 99 Room Air 07/02/17 23:43 36.9 101 17 108/71 (83) 99 Room Air 07/02/17 20:00 96 Room Air 07/02/17 19:13 36.9 60 19 129/74 (92) 96 Room Air Lab Results: Results Past 24 Hours Test 07/03/17 06:08 Range/Units White Blood Count 9.72 4.8-10.8 K/uL Red Blood Count 3.79 4.7-6.1 M/uL Hemoglobin 11.3 14.0-18.0 g/dL Hematocrit 33.3 42-52 % Mean Corpuscular Volume 87.9 80-100 fL Mean Corpuscular Hemoglobin 29.8 25-34 pg Mean Corpuscular Hemoglobin Concent 33.9 32-36 g/dl Platelet Count 169 130-400 K/uL Mean Platelet Volume 9.8 7.4-10.4 fL Neutrophils (%) (Auto) 57.0 % Lymphocytes (%) (Auto) 30.9 % Monocytes (%) (Auto) 10.0 % Eosinophils (%) (Auto) 1.7 % Basophils (%) (Auto) 0.2 % Neutrophils # (Auto) 5.54 1.4-6.5 K/uL Lymphocytes # (Auto) 3.00 1.2-3.4 K/uL Monocytes # (Auto) 0.97 0.11-0.59 K/uL Eosinophils # (Auto) 0.17 0-0.5 K/uL Basophils # (Auto) 0.02 0-0.2 K/uL RDW Standard Deviation 41.6 36.4-46.3 fL RDW Coefficient of Variation 12.9 11.5-14.5 % Immature Granulocyte % (Auto) 0.2 % Immature Granulocyte # (Auto) 0.02 0.00-0.02 K/uL Sodium Level 141 136-145 mmol/L Potassium Level 3.6 3.5-5.1 mmol/L Chloride Level 109 98-107 mmol/L Carbon Dioxide Level 26 21-32 mmol/L Anion Gap 6.0 3-11 mmol/L Blood Urea Nitrogen 11 7-18 mg/dl Creatinine 0.88 0.60-1.40 mg/dl Est Creatinine Clear Calc Drug Dose 133.4 ml/min Estimated GFR () 128.1 Estimated GFR (Non- 110.5 BUN/Creatinine Ratio 12.5 10-20 Random Glucose 89 70-99 mg/dl Calcium Level 8.2 8.5-10.1 mg/dl Phosphorus Level 4.0 2.5-4.9 mg/dl Total Bilirubin 0.3 0.2-1 mg/dl Aspartate Amino Transf (AST/SGOT) 9 15-37 U/L Alanine Aminotransferase (ALT/SGPT) 18 12-78 U/L Alkaline Phosphatase 63 45-117 U/L Total Protein 5.6 6.4-8.2 gm/dl Albumin 2.6 3.4-5.0 gm/dl Globulin 3.0 2.5-4.0 gm/dl Albumin/Globulin Ratio 0.9 0.9-2
--- NOTE | 2017-07-03 18:54 | Discharge Summary ---
Discharge Summary Date of Service Jul 03, 2017. Discharge Summary Admission Date: Jul 01, 2017 at 02:26 Discharge Date: Jul 03, 2017 Discharge Disposition: Home Principal Diagnosis: SEPSIS? LEUKOCYTOSIS COUGH Secondary Diagnoses/Problems: of anxiety/depression and remote history of endocarditis Procedures: CT HEAD: No acute intracranial findings. CXR: Obscured left heart border. This is probably within normal limits although a lingular pneumonia could appear similar. Follow-up PA and lateral chest radiographs are recommended. TWO VIEW CXR: No active disease in the chest. ECHO: There is no evidence of a mass or vegetation. This does not rule out endocarditis. * The left ventricle is normal in size. * Left ventricular systolic function is normal. * Ejection Fraction = 55-60%. Medication Reconciliation New Medications: Cefuroxime Axetil (Cefuroxime Axetil) 500 Mg Tab 1 TAB PO BID for 5 Days, #10 TAB Doxycycline (Monohydrate) (Monodox) 100 Mg Cap 100 MG PO BID for 5 Days, #10 CAP Lactobacillus Acidophilus (Lactinex) Tab 2 TAB PO BID for 7 Days, #28 TAB Continued Medications: Quetiapine Fumarate (Seroquel) 25 Mg Tab 25 MG PO DAILY, TAB Admission Information HPI (per Admitting provider): : He is a 36-year-old male with a significant past medical history of anxiety/depression and remote history of endocarditis. Apparently, he has been complaining of nausea, vomiting, and diarrhea, and with that, he was in the Emergency Room on June 27. He also complained to have some upper respiratory type of infection at the same time. He was sent home and the condition did not get any better and he is here today with a headache without any other symptoms of photophobia, neck stiffness, or any numbness or tingling in the extremities. He also complained to have some pain involving bilateral lower back associated with some nausea, but no vomiting. He denies to have any fever, chills or rigors with it. He does not have any problem with the urine and/or bowel habit. In the Emergency Room, he was not looking that toxic, but his blood count came back abnormal with a white count of 28,000 and also lactate level of more than 4. From that point, he was cultured and started with intravenous ceftriaxone and medicine service consulted for probable admission. Apparent CT scan of the head and chest x-ray remained unremarkable. Physical Exam (per Admitting): GENERAL: On examination in the Emergency Room, he was not having any acute distress. He is very badly kempt. VITAL SIGNS: Temperature 36.8, pulse was 125, blood pressure 98/56 and that went down from 134/83, saturation 95% on room air. HEENT: Unremarkable. NECK: Supple. No JVD, no bruit. CHEST: Clear to auscultate bilaterally. HEART: S1, S2. No murmur appreciated. ABDOMEN: Soft, benign, nontender, no organomegaly, no tenderness in the renal angle. Bowel sounds present. EXTREMITIES: Negative for any edema. MUSCULOSKELETAL SYSTEM: Did not show any acute arthritis involving any joint. CENTRAL NERVOUS SYSTEM: He was alert, awake, oriented x3 and no focal sensory and/or motor deficit appreciated. No neck stiffness. No Kernig signs and/or Brudzinski signs. Hospital Course -This is a 36 year old M who is treated for sepsis with admission WBC 28,000, tachycardia, low blood pressure, elevated lactic acid of 4.8.Received fluids, Vancomycin and Ceftriaxone. LActic acid improved Cultures no growth Echo unremarkable leukocytosis resolved has some cough patient want to be discharged discharged on cefuroxime and doxycycline f/u with pcp. Continue home dose Seroquel for history of anxiety/depression Discharged home Total time spent on discharge = 35MINUTES This includes examination of the patient, discharge planning, medication reconciliation, and communication with other providers. Discharge Instructions Discharge Instructions Date of Service Jul 03, 2017. Admission Reason for Admission: Sepsis Discharge Discharge Diagnosis / Problem: SEPSIS? UNCLEAR SOURCE Discharge Goals Goal(s): Decrease discomfort, Improve function Activity Recommendations Activity Limitations: resume your previous activity . Instructions / Follow-Up Instructions / Follow-Up FOLLOWUP WITH FAMILY DOCTOR IN ONE WEEK Current Hospital Diet Patient's current hospital diet: Regular Diet Discharge Diet Recommended Diet: Regular Diet Pending Studies Studies pending at discharge: no Medical Emergencies . Who to Call and When: Medical Emergencies: If at any time you feel your situation is an emergency, please call 911 immediately. . Non-Emergent Contact Non-Emergency issues call your: Primary Care Provider . . "Provider Documentation" section prepared by Silver Diallo. . VTE Core Measure Inpt VTE Proph given/why not?: Enoxaparin (Lovenox)SQ (REFUSED)
== END 2017-07-03 11:20 | disposition home or self-care (01) | DRG 872 ==
LOC: C.EDB 22:48 → C.2T 07-01 02:26 → ENRESERV 07-01 02:31
PROVIDERS: ADMIT Internal Medicine; ATTEND Internal Medicine
DX: A41.9 Sepsis, unspecified organism (principal); E86.0 Dehydration; R11.2 Nausea with vomiting, unspecified; R51 Headache; R05 Cough; F41.9 Anxiety disorder, unspecified; F32.9 Major depressive disorder, single episode, unspecified; Z23 Encounter for immunization; Z86.79 Personal history of other diseases of the circulatory system; Z79.899 Other long term (current) drug therapy